=== PATIENT | female | born 1965 | race Hispanic/Latino ===

== ENCOUNTER 2020-04-28 23:54 | Emergency (ER) | payer OTHER ==
[~2020-04-28] VITALS: Ht 162.6 cm; Wt 83.9 kg
[2020-04-29] MEDS ORDERED: KETOROLAC TROMETHAMINE 30 MG/ML VIAL IV STA (00:27)
[2020-04-29] MEDS ORDERED: ACETAMINOPHEN 325 MG TAB PO ONE (00:30)
[2020-04-29] MEDS ORDERED: SODIUM CHLORIDE 0.9% 1000ML 1,000 ML IV SCH (00:30)
[2020-04-29] MEDS ORDERED: ONDANSETRON HCL INJ 2MG/ML 2ML 2 MG/ML VIAL IV STA (00:45)
[2020-04-29] MEDS ORDERED: DEXAMETHASONE SOD PHOS INJ 4 MG/ML VIAL IV ONE (00:45)
[2020-04-29] MEDS ORDERED: AZITHROMYCIN 250 MG TAB PO ONE (00:45)
[2020-04-29] MEDS ORDERED: SODIUM CHLORIDE 0.9% 1000ML 1,000 ML ONE (00:54)
[2020-04-29] MEDS ORDERED: KETOROLAC TROMETHAMINE 30 MG/ML VIAL ONE (00:54)
[2020-04-29] MEDS ORDERED: DEXAMETHASONE SOD PHOS INJ 4 MG/ML VIAL ONE (00:54)
[2020-04-29] MEDS ORDERED: ACETAMINOPHEN 325 MG TAB ONE (00:54)
[2020-04-29] MEDS ORDERED: ONDANSETRON HCL INJ 2MG/ML 2ML 2 MG/ML VIAL ONE (00:54)
[2020-04-29] MEDS ORDERED: AZITHROMYCIN 250 MG TAB ONE (01:09)
[2020-04-29] MEDS ORDERED: ZITHROMAX250 MG PO (02:33)
[2020-04-29] MEDS ORDERED: DECADRON6 MG PO (02:34)
[2020-04-29] MEDS ORDERED: BENZONATATE100 MG PO (02:48)
== END 2020-04-29 03:19 | disposition home or self-care (01) ==
LOC: FSED 04-29 00:28
DX: U07.1 COVID-19 (principal); J18.9 Pneumonia, unspecified organism; R50.9 Fever, unspecified; R05 Cough; D69.6 Thrombocytopenia, unspecified; E87.6 Hypokalemia; R51.9 Headache, unspecified; I10 Essential (primary) hypertension; K21.9 Gastro-esophageal reflux disease without esophagitis
CPT/HCPCS: 71046; 74176; 80053; 81003; 85025; 87400; 99284; J1100; J1885; J2405; J7030